=== PATIENT | female | born 1945 | race Caucasian/White ===

== ENCOUNTER 2016-05-05 11:16 | Day surgery (SDC) | payer OTHER, MEDICARE ==
[2016-05-05] MEDS ORDERED: LIDOCAINE 1% 2 ML INJ ONE (11:55)
[2016-05-05] MEDS ORDERED: CEFAZOLIN 1 GM/DEXTROSE/50 ML BAG IV ONE ×2 (11:57→17:29)
[2016-05-05] MEDS ORDERED: BUPIVACAINE/EPI 0.5% 30 ML SDV ONE (12:47)
[2016-05-05] MEDS ORDERED: BACITRACIN 50,000 UNITS/10 ML SYR IRR ONE (12:47)
[2016-05-05] MEDS ORDERED: POLYMYXIN B SULFATE 500,000 UNIT/10 ML SYR IRR ONE (12:47)
[2016-05-05] MEDS ORDERED: PROPOFOL 200 MG/20 ML VIAL ONE (12:56)
[2016-05-05] MEDS ORDERED: fentaNYL 100 MCG/2 ML INJ ONE ×4 (12:56→16:20)
[2016-05-05] MEDS ORDERED: LIDOCAINE 2% 5 ML SDV ONE (12:57)
[2016-05-05] MEDS ORDERED: MIDAZOLAM 2 MG/2 ML VIAL ONE (13:10)
[2016-05-05] MEDS ORDERED: DEXAMETHASONE 4 MG/ML VIAL ONE (13:31)
[2016-05-05] MEDS ORDERED: ONDANSETRON 4 MG/2 ML VIAL ONE ×2 (16:38→16:49)
--- NOTE | 2016-05-05 22:31 | GOP ---
[f rep st] OPERATIVE REPORT DATE OF OPERATION: 05/05/2016 SURGEON: Amy Pascual MD [employer]: Alex Navarrete CFA ANESTHESIA: General. PREOPERATIVE DIAGNOSIS: Comminuted, depressed left lateral tibial plateau fracture. POSTOPERATIVE DIAGNOSIS: Comminuted, depressed left lateral tibial plateau fracture. PROCEDURE PERFORMED: Open reduction, internal fixation, lateral tibial plateau fracture and repair lateral meniscal repair, left knee. FINDINGS: Preoperative x-rays and CT scan of the left knee demonstrated a severely comminuted and d epressed lateral tibial plateau fracture. The lateral plateau was depressed approximately 1 cm. Th is involved the anterior 2/3 of the lateral plateau. At the time of surgery, using the C-arm for vi sualization throughout the procedure, the lateral tibial plateau was exposed and the fracture config uration was identified. The patient was noted to have a peripheral displaced tear of the lateral me niscus. The inner meniscal ligament was incised and the meniscus was retracted to expose the tibial plateau. The tibial plateau was then elevated back into anatomic position. There was significant damage to the articular surface. There was very little subchondral bone to support the articular ca rtilage. As the articular surface was elevated back into anatomic position, a large bone defect was left in the metaphyseal area of the lateral tibial plateau. This was packed with allograft to prov chetna some support of the articular surface. A 4-hole 3.5 Synthes lateral tibial plateau plate was th en placed on the lateral plateau and fixated with 2 K-wires. The C-arm was brought in to confirm go od position of the plate, as well as anatomic reduction of the joint surface. Once this was confirm ed, the plate was fixated with 4 locking screws proximally and 1 locking and 1 cortical screw distal ly. Intraoperative imaging confirmed satisfactory reduction of the fracture and good position of al l hardware. After the fracture was reduced in a satisfactory fashion, a drill hole was placed in th e lateral tibial plateau through one of the unfilled holes in the plate using a 3.5 drill bit, and t hen Norian injectable calcium phosphate was injected in the underlying metaphyseal region of the bon e to help give additional support to the lateral tibial plateau. This was done under direct visuali zation using the C-arm. At the completion of the procedure, the plate was felt to be in satisfactor y position, and the fracture was well reduced. The lateral malleolar fracture was also visualized u sing the C-arm in near-anatomic position. ESTIMATED BLOOD LOSS: Less than 100 cc. DESCRIPTION OF PROCEDURE: The patient taken the operating room, placed in supine position on the op erating table. Following induction of adequate general anesthesia, the leg and knee were prepped an d draped in the usual sterile manner. The patient received 1 g of IV Ancef. The leg was elevated a nd exsanguinated and the tourniquet inflated to 275 mmHg. A curvilinear incision was made, extendin g from the lateral aspect of the lateral joint line, across and then down, along the subcutaneous michell rder of the tibia on the lateral side. The incision was carried down through the subcutaneous tissu e to expose the anterior compartment. The fascia overlying the anterior compartment was then releas ed along the subcutaneous border of the tibia and then extended to include an arthrotomy along the l ateral joint line. The lateral meniscus was located in the knee joint. The patient had a displaced bucket-handle tear of the meniscus. The inner meniscal ligament was incised and tagged for later r epair. The meniscus was then retracted laterally to expose the articular surface of the lateral tib ial plateau. The patient had a very comminuted, depressed fracture. The articular cartilage was se verely damaged. There was a longitudinal crack in the cortex of the anterolateral aspect of the tib ial plateau and this was opened up and then using an elevator, the articular surface was elevated ba ck into anatomic position. There was very little subchondral bone attached to the overlying articul ar cartilage. Once the cartilage was back into anatomic position, some allograft bone chips were pa cked in the defect and then the trapdoor that had been opened to elevate the joint surface was close d back over the allograft bone. The 3.5 Synthes lateral tibial plateau plate was positioned on the lateral plateau and fixated with 2 K-wires. The C-arm was brought in to visualize the reduction and the position of the plate. It was felt to be satisfactory, so a single 3.5 cortical screw was plac ed distally to hold the plate in position and then the 3 proximal locking screws were inserted. Aga in, intraoperative imaging confirmed satisfactory position of the screws. The crossing screw was th en inserted and finally a 3.5 drill bit was used to open up one of the remaining holes in the plate fit so that the Norian could be injected in the metaphyseal area of the lateral tibial plateau. Thi s provided additional bony support for the compressed metaphyseal bone. The wound was then irrigate d out and the meniscus was repaired using 2-0 FiberWire in a [id number] fashion. The inner men iscal ligament was repaired, as well as a peripheral repair of the anterior half of the meniscus. T he knee joint was thoroughly irrigated out and then the retinaculum of the knee was closed using #1 Ethibond in a [id number] fashion. The subcutaneous tissues were closed using 2-0 Vicryl and th e skin was closed using doris. Sterile dressings and an Toney wrap were applied. The knee was inje cted with 20 cc of 0.5% Marcaine with epinephrine. The tourniquet was deflated after a total tourni quet time of approximately 110 minutes. The patient was placed in a hinged knee brace with full ran ge of motion. She was transported to the recovery room in good condition. /[id number]/MODL
== END 2016-05-05 18:30 | disposition home or self-care (01) ==
LOC: FSGY 11:16
PROVIDERS: ATTEND Orthopaedic Surgery
PROC: 0SQD0ZZ Repair Left Knee Joint, Open Approach (ICD-10-PCS; principal; 2016-05-05 12:45)
PROC: 0QSH04Z Reposition Left Tibia with Internal Fixation Device, Open Approach (ICD-10-PCS; principal; 2016-05-05 12:45)
DX: S82.145A Nondisplaced bicondylar fracture of left tibia, initial encounter for closed fracture (principal); S82.402A Unspecified fracture of shaft of left fibula, initial encounter for closed fracture; S83.262A Peripheral tear of lateral meniscus, current injury, left knee, initial encounter; V00.321A Fall from snow-skis, initial encounter; Y92.838 Other recreation area as the place of occurrence of the external cause; Y93.23 Activity, snow (alpine) (downhill) skiing, snowboarding, sledding, tobogganing and snow tubing
CPT/HCPCS: C1713; C1762; J0690; J1100; J2250; J2405; J2704; J3010

== ENCOUNTER → 2017-06-08 | Outpatient (CLI) | payer OTHER, MEDICARE | LOC: BMCIMAGING 08:01 | PROVIDERS: ATTEND Internal Medicine | DX: Z12.31 Encounter for screening mammogram for malignant neoplasm of breast (principal); Z80.3 Family history of malignant neoplasm of breast ==

== ENCOUNTER → 2018-05-24 | Outpatient (CLI) | payer OTHER, MEDICARE | LOC: BMCIMAGING 10:37 | PROVIDERS: ATTEND Internal Medicine | DX: R07.9 Chest pain, unspecified (principal) ==

== ENCOUNTER → 2018-05-25 | Outpatient (CLI) | payer OTHER, MEDICARE | LOC: BMCIMAGING 10:26 | PROVIDERS: ATTEND Internal Medicine | DX: M51.34 Other intervertebral disc degeneration, thoracic region (principal) ==

== ENCOUNTER → 2018-05-31 | Outpatient (CLI) | payer OTHER, MEDICARE | LOC: BMCIMAGING 08:44 | PROVIDERS: ATTEND Internal Medicine | DX: Z12.31 Encounter for screening mammogram for malignant neoplasm of breast (principal); Z80.3 Family history of malignant neoplasm of breast ==